=== PATIENT | male | born 1985 | race African-American/Black ===

== ENCOUNTER 2019-04-27 19:42 | Emergency (ER) | payer OTHER ==
[~2019-04-27] VITALS: Ht 175.3 cm; Wt 84.5 kg
[~2019-04-27 19:42] MED LIST: NORCO 325 MG-7.1 TAB PO; ROXICODONE 55 MG/TAB PO
[2019-04-27 19:49] VITALS: BP 123/73; TEMP 99.9
[2019-04-27 21:24] VITALS: PULSE 65
== END 2019-04-27 21:24 | disposition home or self-care (01) ==
LOC: COL.ER 19:42
DX: S06.0X9A Concussion with loss of consciousness of unspecified duration, initial encounter (principal); R40.2412 Glasgow coma scale score 13-15, at arrival to emergency department; W50.0XXA Accidental hit or strike by another person, initial encounter; Y92.830 Public park as the place of occurrence of the external cause; Y93.66 Activity, soccer
CPT/HCPCS: J1885; J7030